=== PATIENT | female | born 1985 | race Caucasian/White ===

== ENCOUNTER 2022-05-13 14:28 | Outpatient (CLI) | payer BC, SELFPAY | END 2022-05-13 14:29 | disposition home or self-care (01) | LOC: US 14:29 | PROVIDERS: Visit Provider Pediatrics Neonatal-Perinatal Medicine | DX: O09.522 Supervision of elderly multigravida, second trimester (principal); Z3A.20 20 weeks gestation of pregnancy | CPT/HCPCS: 76811 ==

== ENCOUNTER 2022-05-28 10:36 | Outpatient (CLI) | payer BC, SELFPAY ==
[2022-05-28 13:41] LABS: Glucose Fasting Check 89 mg/dl (60-115)
[2022-05-28 17:27] LABS: Glucose 1 Hour Gest 123 mg/dl (70-180)
[2022-05-28 17:48] LABS: Glucose GTT-Gestational 3 Hr 124 mg/dl (70-140)
== END 2022-05-28 10:37 | disposition home or self-care (01) ==
LOC: NFLDREF 13:20
PROVIDERS: Visit Provider Obstetrics & Gynecology
DX: Z34.90 Encounter for supervision of normal pregnancy, unspecified, unspecified trimester (principal)
CPT/HCPCS: 82951; 82952

== ENCOUNTER 2022-06-10 10:48 | Outpatient (CLI) | payer BC, SELFPAY ==
--- NOTE | 2022-06-10 11:00 | CRLHL7_ITS ---
For Patients: As a result of the Cures Act, medical imaging exams and procedure reports are released immediately into your electronic medical record. You may view this report before your referring provider. If you have questions, please contact your health care provider. INDICATION: Third trimester scan, evaluate growth. COMPARISON: 02/18/2022, 05/13/2022 TECHNIQUE: Real time naqvi scale imaging of the fetus was performed. FINDINGS: Sonographic imaging demonstrates a single living intrauterine gestation. Fetus demonstrates a regular cardiac rate of 152 beats per minute. Fetus has a breech position. The placenta lies fundal posterior. Amniotic fluid volume appears normal and there is a single deepest vertical pocket: 3.2 cm. The estimated weight is 626gm which lies at the 12th %. On the prior OB ultrasound exam dated 05/13/2022 the estimated weight was at the 10th%. BPD 5th percentile. HC 5th percentile. AC 21st percentile. FL 15th percentile. The HC/AC ratio measures 1.12 range (1.05-1.21). IMPRESSION: Sonographic gestational age 23 weeks 4 days and sonographic due date 10/03/2022. Sonographic age is 1 week behind the clinical age. Estimated weight 12th percentile. Abdominal circumference 21st percentile. BPD and HC 5th percentile. Dictated by Jhony John MD @ 06/10/2022 11:40:52 AM (Electronically Signed)
== END 2022-06-10 10:49 | disposition home or self-care (01) ==
PROVIDERS: Visit Provider Obstetrics & Gynecology
DX: Z34.92 Encounter for supervision of normal pregnancy, unspecified, second trimester (principal); Z3A.23 23 weeks gestation of pregnancy
CPT/HCPCS: 76816

== ENCOUNTER 2022-07-09 12:27 | Outpatient (CLI) | payer BC, SELFPAY ==
[2022-07-09 13:35] LABS: Glucose Fasting Check 92 mg/dl (60-115)
[2022-07-09 17:33] LABS: Glucose GTT-Gestational 3 Hr 133 mg/dl (70-140)
[2022-07-09 17:33] LABS: Glucose 1 Hour Gest 168 mg/dl (70-180)
[2022-07-11 02:02] LABS: Rapid Plasma Reagin (RPR) Non Reactive (Non Reactive)
== END 2022-07-09 12:28 | disposition home or self-care (01) ==
PROVIDERS: Obstetrics & Gynecology; Visit Provider Registered Nurse
DX: O10.913 Unspecified pre-existing hypertension complicating pregnancy, third trimester (principal); Z3A.28 28 weeks gestation of pregnancy
CPT/HCPCS: 82951; 82952; 84443; 86592

== ENCOUNTER 2022-07-23 12:50 | Outpatient (CLI) | payer BC, SELFPAY ==
--- NOTE | 2022-07-23 13:00 | CRLHL7_ITS ---
For Patients: As a result of the Century Cures Act, medical imaging exams and procedure reports are released immediately into your electronic medical record. You may view this report before your referring provider. If you have questions, please contact your health care provider. INDICATION: Third trimester scan, evaluate growth. SGA COMPARISON: 06.10.22 TECHNIQUE: Real time naqvi scale imaging of the fetus was performed. FINDINGS: Sonographic imaging demonstrates a single living intrauterine gestation. Fetus demonstrates a regular cardiac rate of 169 beats per minute. Fetus has a vertex position. The placenta lies posteriorly. Amniotic fluid volume appears normal and there is a single deepest vertical pocket: 4.1 cm. The estimated weight is 1453gm which lies at the 13th %. On the prior OB ultrasound exam dated 06/10/2022 the estimated weight was at the 12th%. The BPD and HC less than 3rd percentile. AC 28th percentile. FL 13th percentile. The HC/AC ratio measures 1.04 range (0.98-1.20). IMPRESSION: Sonographic gestational age 29 weeks 3 days and sonographic due date 10/05/2022. Sonographic age is 9 days behind the clinical age. Estimated weight 13th percentile. Abdominal circumference 28th percentile. BPD and HC both less than 3rd percentile. Dictated by Jhony John MD @ 07/23/2022 3:12:38 PM (Electronically Signed)
== END 2022-07-23 12:51 | disposition home or self-care (01) ==
LOC: US 12:50
PROVIDERS: Visit Provider Registered Nurse
DX: Z03.74 Encounter for suspected problem with fetal growth ruled out (principal); Z3A.29 29 weeks gestation of pregnancy
CPT/HCPCS: 76816

== ENCOUNTER 2022-08-06 13:51 | Outpatient (CLI) | payer BC, SELFPAY ==
--- NOTE | 2022-08-06 14:00 | CRLHL7_ITS ---
For Patients: As a result of the Century Cures Act, medical imaging exams and procedure reports are released immediately into your electronic medical record. You may view this report before your referring provider. If you have questions, please contact your health care provider. INDICATION: female. Gestational diabetes mellitus. Chronic hypertension. Evaluate well-being. TECHNIQUE: Transabdominal obstetrical ultrasound. COMPARISON: July 23, 2022. FINDINGS: Single living intrauterine in vertex presentation. Posterior placenta. heart rate 154 beats per minute. Normal amniotic fluid volume. Single deepest pocket measurement 3.3 cm. Biophysical profile score 8/8 with 2 points given each for breathing, movement, tone, and amniotic fluid. Biparietal diameter 7.8 cm, 31 weeks 3 days, 10th percentile. Head circumference 29.2 cm, 32 weeks 1 day, 7th percentile. Abdominal circumference 28.4 cm, 32 weeks 3 days, 40th percentile. Femur length 6.2 cm, 32 weeks 2 days, 25th percentile. Composite calculated ultrasound age 32 weeks 1 day with a sonographic due date of September 30, 2022. Appropriate growth and maturation in the interval. Estimated weight 1929 g which lies at the 26 percentile, previously the 13th percentile. The head to abdominal circumference ratio is 1.0 (0.96-1.14). Femur length to abdominal circumference ratio 21.93 (20.0-24.0). IMPRESSION: Single living intrauterine in vertex presentation. Composite calculated ultrasound age 32 weeks 1 day with a sonographic due date of September 30, 2022. Biophysical profile score 8/8. Dictated by Bala Love MD @ 08/07/2022 10:00:18 AM (Electronically Signed)
== END 2022-08-06 13:52 | disposition home or self-care (01) ==
LOC: US 13:51
PROVIDERS: PCP Obstetrics & Gynecology; Visit Provider Obstetrics & Gynecology
DX: O24.419 Gestational diabetes mellitus in pregnancy, unspecified control (principal); O10.913 Unspecified pre-existing hypertension complicating pregnancy, third trimester; Z3A.32 32 weeks gestation of pregnancy
CPT/HCPCS: 76816; 76819

== ENCOUNTER 2022-08-14 13:54 | Outpatient (CLI) | payer BC, SELFPAY ==
--- NOTE | 2022-08-14 14:00 | CRLHL7_ITS ---
For Patients: As a result of the Century Cures Act, medical imaging exams and procedure reports are released immediately into your electronic medical record. You may view this report before your referring provider. If you have questions, please contact your health care provider. INDICATION: Gestational diabetes COMPARISON: none TECHNIQUE: Real time naqvi scale imaging of the fetus was performed. Without non-stress testing. FINDINGS: Sonographic imaging demonstrates a single living intrauterine gestation. Fetus demonstrates a regular cardiac rate of 147 beats per minute. Fetus has a vertex position. The amniotic fluid volume appears normal and there is a single deepest pocket measurement of 2.8 cm. The fetus was active and demonstrated normal breathing movements. There was normal flexion and extension of the trunk and extremities. IMPRESSION: Normal biophysical profile score of 8 out of 8. Dictated by Jhony John MD @ 08/14/2022 2:37:52 PM (Electronically Signed)
== END 2022-08-14 13:55 | disposition home or self-care (01) ==
LOC: US 13:55
PROVIDERS: PCP Obstetrics & Gynecology; Visit Provider Obstetrics & Gynecology
DX: O24.419 Gestational diabetes mellitus in pregnancy, unspecified control (principal)
CPT/HCPCS: 76819

== ENCOUNTER 2022-08-21 13:52 | Outpatient (CLI) | payer BC, SELFPAY ==
--- NOTE | 2022-08-21 14:00 | CRLHL7_ITS ---
For Patients: As a result of the Century Cures Act, medical imaging exams and procedure reports are released immediately into your electronic medical record. You may view this report before your referring provider. If you have questions, please contact your health care provider. INDICATION: Gestational diabetes COMPARISON: 08/14/2022 TECHNIQUE: Real time naqvi scale imaging of the fetus was performed. Without non-stress testing. FINDINGS: Sonographic imaging demonstrates a single living intrauterine gestation. Fetus demonstrates a regular cardiac rate of 141 beats per minute. Fetus has a vertex position. The amniotic fluid volume appears normal and there is a single deepest pocket measurement of 4.5 cm. The fetus was active and demonstrated normal breathing movements. There was normal flexion and extension of the trunk and extremities. IMPRESSION: Normal biophysical profile score of 8 out of 8. Dictated by Jhony John MD @ 08/21/2022 3:44:57 PM (Electronically Signed)
== END 2022-08-21 13:53 | disposition home or self-care (01) ==
LOC: US 13:53
PROVIDERS: PCP Obstetrics & Gynecology; Visit Provider Obstetrics & Gynecology
DX: O24.419 Gestational diabetes mellitus in pregnancy, unspecified control (principal)
CPT/HCPCS: 76819

== ENCOUNTER 2022-08-28 13:43 | Outpatient (CLI) | payer BC, SELFPAY ==
--- NOTE | 2022-08-28 14:00 | CRLHL7_ITS ---
For Patients: As a result of the Cures Act, medical imaging exams and procedure reports are released immediately into your electronic medical record. You may view this report before your referring provider. If you have questions, please contact your health care provider. OBSTETRICAL ULTRASOUND, 08/28/2022 INDICATION: GDM, CHTN. INDY by LMP: 09/26/2022. GA: 35 w, 6 d. FINDINGS: Cervix: Not visualized. position: Vertex. Technique: Transabdominal. Placenta/cord: Posterior. Amniotic Fluid: 5.2 cm SDP (greater than/equal to: 2- less than 8 cm). Heart rate: 149 bpm. BIOPHYSICAL PROFILE 8 Total Score 2 Gross Body Movements 2 Tone 2 Respiratory Activity 2 Amniotic Fluid SDP IMPRESSION: Biophysical profile /. Verónica Encarnacion M.D. Diagnostic/Breast Radiologist [email or web address] Transcribed: 8:26 a.m. JR/Dictated by: Verónica Encarnacion MD @ 08/30/2022 8:13:00 PM (Electronically Signed)
== END 2022-08-28 13:44 | disposition home or self-care (01) ==
LOC: US 13:44
PROVIDERS: PCP Obstetrics & Gynecology; Visit Provider Obstetrics & Gynecology
DX: O24.419 Gestational diabetes mellitus in pregnancy, unspecified control (principal); O10.913 Unspecified pre-existing hypertension complicating pregnancy, third trimester; Z3A.35 35 weeks gestation of pregnancy
CPT/HCPCS: 76819; 87081; 87653

== ENCOUNTER 2022-09-02 13:52 | Outpatient (CLI) | payer BC, SELFPAY ==
--- NOTE | 2022-09-02 14:00 | CRLHL7_ITS ---
For Patients: As a result of the Century Cures Act, medical imaging exams and procedure reports are released immediately into your electronic medical record. You may view this report before your referring provider. If you have questions, please contact your health care provider. INDICATION: Third trimester scan, evaluate growth. Gestational diabetes, hypertension. COMPARISON: 08/28/2022 TECHNIQUE: Real time naqvi scale imaging of the fetus was performed. FINDINGS: Sonographic imaging demonstrates a single living intrauterine gestation. Fetus demonstrates a regular cardiac rate of 137 beats per minute. Fetus has a vertex position. The placenta lies posterior. Amniotic fluid volume appears normal and there is a single deepest vertical pocket: 3.5 cm. The estimated weight is 2546gm which lies at the 15th %. On the prior OB ultrasound exam dated 08/06/2022 the estimated weight was at the 26th%. BPD 7th percentile. HC 10th percentile. AC 24th percentile. FL 5th percentile. The HC/AC ratio measures 1.02 range (0.93-1.11). Normal gross body movements, tone and respiratory activity. IMPRESSION: Normal biophysical profile 05/04. Sonographic gestational age 34 weeks 6 days and sonographic due date 10/08/2022. Sonographic age is 2 weeks behind the clinical age. Estimated weight 15th percentile. Abdominal circumference 24th percentile. Dictated by Jhony John MD @ 09/04/2022 10:30:44 AM (Electronically Signed)
== END 2022-09-02 13:53 | disposition home or self-care (01) ==
LOC: US 13:52
PROVIDERS: PCP Obstetrics & Gynecology; Visit Provider Obstetrics & Gynecology
DX: O24.419 Gestational diabetes mellitus in pregnancy, unspecified control (principal); Z3A.36 36 weeks gestation of pregnancy
CPT/HCPCS: 76816; 76819

== ENCOUNTER 2022-09-09 14:00 | Outpatient (RCR) | payer BC, SELFPAY | END 2022-09-09 14:29 | disposition home or self-care (01) | PROVIDERS: PCP Obstetrics & Gynecology; Visit Provider Obstetrics & Gynecology | DX: O26.892 Other specified pregnancy related conditions, second trimester (principal); Z51.89 Encounter for other specified aftercare | CPT/HCPCS: 97110; 97112; 97140; 97162; 97530; 97535 ==

== ENCOUNTER 2022-09-11 13:50 | Outpatient (CLI) | payer BC, SELFPAY ==
--- NOTE | 2022-09-11 14:00 | CRLHL7_ITS ---
For Patients: As a result of the Century Cures Act, medical imaging exams and procedure reports are released immediately into your electronic medical record. You may view this report before your referring provider. If you have questions, please contact your health care provider. INDICATION: Gestational diabetes, hypertension. COMPARISON: OB ultrasound 09/02/2022. TECHNIQUE: Real time naqvi scale imaging of the fetus was performed without non-stress testing. FINDINGS: Sonographic imaging demonstrates a single living intrauterine gestation. The fetus demonstrates a regular cardiac rate of 150 beats per minute. The fetus has a cephalic orientation. The placenta lies posteriorly. Amniotic fluid volume appears normal with single deepest pocket measuring 4.1 cm (2/2). The fetus was active (2/2). There was normal flexion and extension of the trunk and extremities (2/2). The fetus demonstrated normal breathing movements (2/2). IMPRESSION: Normal biophysical profile score 8 out of 8. Dictated by Kenia Fernández MD @ 09/11/2022 11:35:35 PM (Electronically Signed)
== END 2022-09-11 13:51 | disposition home or self-care (01) ==
LOC: US 13:51
PROVIDERS: PCP Obstetrics & Gynecology; Visit Provider Obstetrics & Gynecology
DX: O24.419 Gestational diabetes mellitus in pregnancy, unspecified control (principal); O16.9 Unspecified maternal hypertension, unspecified trimester; Z3A.00 Weeks of gestation of pregnancy not specified
CPT/HCPCS: 76819

== ENCOUNTER 2022-09-17 07:54 | Inpatient (IN) | payer BC, SELFPAY ==
[2022-09-17] VITALS (34 sets, daily range): BP systolic 111–187; BP diastolic 55–85; PULSE 76–95; RESP 16–18; TEMP 36.6–37.1; O2SAT 90–100; BMI 41.3
[2022-09-17 09:03] LABS: SARS PCR* Negative SARS-CoV-2 (Negative)
--- NOTE | 2022-09-17 09:22 | P.LDBA_ITS ---
Subjective History of Present Illness Date Seen: 09/17/22 Narrative: Patient is being admitted to Labor and Delivery for IOL. She is a 37 year old at weeks gestation. Her full history and physical was dictated by Dr. CAMPA on 09/02/22. Please see this for details. Patient today states to be doing well, no significant changes since her last appointment. blood type:?A positive G2, P 0 010 :? TJ. Baby: Girl Conceived on letrozole. 1. AMA: --LVL 2 ultrasound ordered on 03/19/22: normal anatomy, EFW 10%.? --03/19/22, Genetic screening: MaterniT-21:? Negative 2. Chronic hypertension, managed with exercise. * Abnl baseline labs:*AST 57, 24hr urine protein: 400mg.? AST Recheck 03/19/2022:? 22.ALT 27, Plt 327, WBC 12.1, BUN 11, Creat 0.7, Uric acid 5. Recommended daily baby aspirin due to AMA, obesity, history of HTN, primigravida * IOL 38-39 6/7 weeks 3. Gestational Diabetes A2 -Started insulin on 08/05/22: NPH 22 units at night -Twice weekly testing -Growth US every 4 weeks * 08/06/22: EFW 26%.? BPD 10%, HC 7%, AC 40%, FL 25%.?-IOL 39 - 39 6/7 weeks if good control continues.? 4. Body mass index:? 39.1 * A1C: 5.3% * Early Glucola: 151 * 3 hr GTT at 20 weeks:? entirely normal * 28 week *3*hr GTT: abnormal.?GDM * testing as in #3 5. Hypothyroidism, managed on 25 mcg levothyroxine. Check TSH w/ reflex FT4 Q trimester ?--First trimester 02/20/22: TSH 1.06 ? ?--Third trimester:07/09/22:2.270, continue on same dose 6.? Borderline IUGR at 20 week scan.? INDY by ultrasound on 05/13/2022 is 10/04/2022 EFW 10% on level 2 ultrasound.? INDY by LMP 09/26/2022.??Patient suggests different ovulation date; review with patient at next visit.?(see blow)? INDY by 1st ultrasound 10/01/2022, on which the CRL was consistent with 7 weeks, [address] Box does not recommend changing INDY, but recommends follow-up scan for growth at 30+ weeks gestation Favor repeat US for EFW at 24 weeks, prior to next visit.? Twenty-four weeks: EFW of 12%.? Abdomen 21%.? BPD 5%, HC 5%.? FL 15%. Repeat growth at 30 weeks:EFW:13%, Vertex, BPD: <3%, HC: <3%, AC: 28%, FL: 13%. SDP: 4.1cm. Referral to perinatology for second opinion: MFM: HC:9%, normal anatomy, no need for further evaluation 7.??GBS positive.? Ampicillin in labor. OB - H&P: Exam Physical Exam: Vital signs: Pulse BP 86 135/73 09/17/22 08:21 09/17/22 08:21 Narrative: NST: 130 bpm/ positive accelerations/negative decelerations/moderate variability/irregular asymptomatic UCs OB - Problem Based A/P Additional Plan (1) : Status: Acute Plan IOL: 1. GDM insulin dependent: Patient utilized her usual NPH last night at 10pm. Blood sugar upon arrival 87 normal. She will maintain a light diet today. Will continue to monitor BS as per protocol and treat with IV insulin if needed. 2. CHTN: Baseline labs ordered, will continue to monitor V/S and symptoms of severe HTN/PreE closely. 3. GBS positive: Start IV ampicillin ELANA 4. IOL: Start IV oxytocin and will move towards AROM after at least 4 hours of antibiotic therapy. 5. Pain management as needed, as per patient preference 6. Continuos monitoring
[2022-09-17] MEDS: AMPICILLIN 2 GM in 0.9 % SODIUM CHLORIDE Mini-bag 100 ML IVPB (10:32)
[2022-09-17] MEDS: LACTATED RINGERS 1000 ML 1,000 ML 125 ML IV ×2 (10:32→18:51)
[2022-09-17 10:55] LABS: Basophils Absolute Auto 0.03 K/uL (0.00-0.30); Basophils Percent Auto 0.3 % (0.0-3.0); Hematocrit 35.8 % (33.0-51.0); Hemoglobin* 12.4 gm/dL (12.0-16.0); Lymphocytes Percent Auto 22.7 % (20-44); Mean Corpuscular HGB Conc 35 gm/dL (32-36); Mean Corpuscular Hemoglobin 33 pg (26-34); Mean Corpuscular Volume 94 fL (80-100); Neutrophils Absolute Auto 6.87 K/uL (1.7-7.0); Platelet Count* 264 K/uL (140-440); RDW Coefficient of Variation % 13.4 % (11.5-15.5); Red Blood Count 3.82 m/uL (4.00-5.20); White Blood Count* 10.11 K/uL (4.50-11.00)
[2022-09-17 11:12] LABS: Slide Review Reflex No
[2022-09-17 12:04] LABS: Alanine Aminotransferase* 13 U/L (4-35); Aspartate Amino Transferase* 24 U/L (12-35); Blood Urea Nitrogen* 15 mg/dL (5-24); Creatinine* 0.6 mg/dL (0.5-1.5); Est. Creatinine Clearance* 122.51; Estimated Glomerular Filt Rate 120 ml/min
[2022-09-17] MEDS: AMPICILLIN 1 GM in 0.9 % SODIUM CHLORIDE Mini-bag 100 ML IVPB ×2 (14:30→18:59)
[2022-09-17] MEDS: OXYTOCIN 30 unit/500 ML in NS 30 UNIT/500 ML BAG IVPB (15:40)
[2022-09-17] MEDS: fentaNYL 250 MCG/5 ML inj 100 MCG EPIDURAL (18:40)
[2022-09-17] MEDS: LIDOCAINE 2% (PF) 5 ML VIAL EPIDURAL (18:44)
[2022-09-17] MEDS: ROPIVACAINE 0.2% 100 ml 100 ML 12 MG EPIDURAL (18:44)
--- NOTE | 2022-09-17 18:59 | PM.OBPNL ---
Subjective Date Seen: 09/17/22 Narrative: *Late note entry. 37-year-old admitted for induction of labor in the setting of term , gestational diabetes insulin controlled, chronic hypertension, hypothyroidism. We were unable to start induction of labor until about 3:30 p.m. due to staffing issues. Patient was kept most of the time on it the in monitor and NST has remained category 1. Blood sugars have remained well controlled. Since patient is GBS status, ampicillin was started. Cervix was checked at around 3:30 p.m. and found 5 cm dilated recommendation was given for a ROM. Patient tolerated procedure well. IV oxytocin also started at this time. Cervix was re checked at around 5:30 p.m. and she has progressed to 7cm/90% effaced/-1 station. NST has remained category 1. Tracing has continue to show right uterine contractions and patient has been rating them as more intense and painful. Patient did request epidural and this was placed at around 6:30-6:45 p.m. Objective Exam: Cervix: 7cm/90/vx/-1 NST: 130bpm/positive accelerations/negative decelerations/ moderate variability/ regular uterine contractions Vital Signs: Last Vital Signs Temp 98 F 09/17/22 13:39 Pulse 85 09/17/22 18:57 Resp 16 09/17/22 13:39 BP 146/81 H 09/17/22 18:57 Pulse Ox 99 09/17/22 18:54 Pelvic Exam Dilation (cm): 7 Effacement (%): 90 Station: -1 Contractions Monitor mode: External Contraction pattern: Regular Contraction intensity: Strong/Firm Pitocin Rate (mU/min): 8 Assessment Assessment: active labor Station: -1 Amniotic Membrane Status: AROM Status: Category l Heart Rate Baseline: 130 Prison Variability: Moderate (6-25) Monitor Accelerations: Present Monitor Decelerations: None Tracing Comments: Category 1 Labor Progress: Normal Maternal Status: Good Plan Plan: Continue current management
--- NOTE | 2022-09-17 19:00 | P.ANBPRC_ITS ---
[facility] Medical History (Updated 08/15/22 @ 14:58 by Anabel Lau MD) History of viral meningitis Surgical History (Updated 04/13/22 @ 10:28 by Georgie Kaminski) History of adenoidectomy History of myringotomy History of strabismus surgery Social History Smoking Status: Never smoker Meds Home Medications and Allergies Home Medications Medication Instructions Recorded Confirmed Type aspirin 81 mg tablet,delayed 81 mg PO QDAY 04/16/22 09/17/22 History release (Adult Low Dose Aspirin) prenat.vits,jim,pku-uyam-vtnbe 1 tab PO QDAY 04/16/22 09/17/22 History insulin NPH human semi-syn 100 unit subcut 08/06/22 09/15/22 History unit/mL subcutaneous suspension Allergies Allergy/AdvReac Type Severity Reaction Status Date / Time gentamicin AdvReac Intermediate Verified 09/17/22 08:19 minocycline AdvReac Intermediate Verified 09/15/22 14:53 spironolactone AdvReac Intermediate Verified 09/15/22 14:53 Sulfa (Sulfonamide AdvReac Intermediate Verified 09/17/22 08:19 Antibiotics) Results Labs Labs: Laboratory Results - last 24 hr 09/17/22 09/17/22 09/17/22 08:10 09:20 10:45 WBC 10.11 RBC 3.82 L Hgb 12.4 Hct 35.8 MCV 94 MCH 33 MCHC 35 RDW Coeff of Zeus 13.4 Plt Count 264 Neut % (Auto) 68.0 Lymph % (Auto) 22.7 [place] % (Auto) 6.0 Eos % (Auto) 1.0 Baso % (Auto) 0.3 Neut # (Auto) 6.87 Lymph # (Auto) 2.30 [place] # (Auto) 0.60 Eos # (Auto) 0.10 Baso # (Auto) 0.03 BUN 15 Creatinine 0.6 Estimated Creat Clear 122.51 Estimated GFR 120 AST 24 ALT 13 SARS-CoV-2 (PCR) Negative SARS-CoV-2 Blood Type Antibody Screen 09/17/22 10:45 WBC RBC Hgb Hct MCV MCH MCHC RDW Coeff of Zeus Plt Count Neut % (Auto) Lymph % (Auto) [place] % (Auto) Eos % (Auto) Baso % (Auto) Neut # (Auto) Lymph # (Auto) [place] # (Auto) Eos # (Auto) Baso # (Auto) BUN Creatinine Estimated Creat Clear Estimated GFR AST ALT SARS-CoV-2 (PCR) Blood Type A Positive Antibody Screen NEGATIVE Vital Signs Vital Signs: Last Vital Signs Temp 98 F 09/17/22 13:39 Pulse 85 09/17/22 18:57 Resp 16 09/17/22 13:39 BP 146/81 H 09/17/22 18:57 Pulse Ox 98 09/17/22 18:59 Weight: 116.12 kg Height: 167.64 cm Anesthesia Procedures Epidural Insertion Patient Location: OB Start Time: 18:00 Stop Time: 19:00 Start Date: 09/17/22 Stop Date: 09/17/22 Reason for Block: primary anesthetic Patient Position: sitting Performed By: Lazaro Hankins Preanesthetic Checklist: IV checked, risks and benefits discussed, surgical consent, monitors and equipment checked, pre-op evaluation, timeout performed and anesthesia consent Prep: chlorhexidine gluconate Monitoring: blood pressure monitoring, surveillance monitor, continuous pulse oximetry and heart rate Approach: midline Vertebral Space: lumbar (1-5) Needle Type: Tuohy needle Injection Technique: continuous catheter Needle gauge: 17 Needle Length (cm): 10 cm Needle Insertion Depth (cm): 6 Catheter Gauge: 19 Catheter Type: multi-orifice Catheter at skin depth (cm): 12 Test Dose Result: negative and lidocaine 1.5% with epinephrine 1 to 200,000 Events: other
--- NOTE | 2022-09-17 21:08 | PM.OBPRCVD ---
Procedure Delivery date: 09/17/22 Procedure Done: Global Events: GDMA2, Chronic Hypertension, Labor Induction and Other (hypothyroidism) Intrapartal Events: Labor Induction Induction method: AROM Delivery augmentation: rupture of membranes and pitocin Delivery monitor: external FHT Route of delivery: Episiotomy description: None Laceration description: Perineal - 1st Degree Delivery repair: Vicryl Estimated blood loss (mL): 100 Anesthesia type: Epidural Disposition: floor Complications: None Narrative: The patient is a 37 year-old G 2 P 1011 admitted on 09/17/2022 at 38 Weeks, 5 Days gestation for induction of labor.? Cervical exam on admission was 4 cm/80 % effaced/-2 station with membranes intact in vertex presentation.? Contractions were every 5-7 minutes.? heart rate demonstrated baseline 130 bpm with moderate variability, positive accelerations, negative decelerations; a category 1 tracing.? A ROM occurred at 1528 with clear fluid. ? Labor Analgesia:? Epidural ? Pitocin:? Yes ? Labor onset:? 1523 ? Complete:? 193 ? Pushing:? 1942 ? heart tones during second stage were category 1, right before the last push there was a deceleration down to 70s heartbeat, patient delivered with the next push. ? At 2041 a viable female delivered in vertex JUDSON presentation over intact perineum via spontaneous vaginal delivery.? Infant was placed on maternal abdomen.? Cord was clamped and cut after a 30-60 second delay.? Nose and mouth were bulb suctioned.? weight pending.? 8 at 1 minute and 9 at 5 minutes.? Shoulder dystocia: No.? Nuchal cord: Yes x1, easily reduced after delivery of head. ? Placenta delivered spontaneously and complete at 2048 with a 3 vessel cord. ? Mother and infant were stable after delivery. ? Lacerations:? 1st degree perineal, repaired with micro 3-0 and Vicryl 4-0. ? Blood loss: 100 mL. Blood loss measurement type: QBL ? Sponge and needles counts are correct. Infant Gender: Female presentation: vertex Placental Delivery Description: Spontaneous Cord Description: 3 Vessels and Nuchal Cord cord description comment: Marginal insertion of the umbilical cord
[2022-09-18 03:49] VITALS: BP 96/62; PULSE 102; RESP 16; TEMP 37; O2SAT 98
[2022-09-18 07:08] LABS: Hemoglobin* 14.3 gm/dL (12.0-16.0)
--- NOTE | 2022-09-18 07:37 | P.DS_ITS ---
DS: Providers Provider Time Seen by Provider: 07:38 Date Seen: 09/18/22 Date of admission: 09/17/22 07:54 Primary care physician: Odette Lomax MD Admitting Clinician: Ivelisse Carlos MD Attending Physician on discharge: Ivelisse Carlos MD DS: Diagnosis Discharge Diagnosis (1) NVD (normal vaginal delivery): Status: Acute (2) Lactating mother: Status: Acute Exam Narrative: Exam Narrative: VSS, afebrile GENERAL APPEARANCE: ?normal affect, alert, no distress MOOD: ?appropriate HEENT: normocephalic, neck supple, full ROM CHEST: ?Symmetrical chest wall movement. ?Normal respiratory effort. ?Clear to auscultation HEART: ?regular rate and rhythm ABDOMEN: ?soft, non-tender. Uterine fundus is firm, at Umbilicus, Midline and is appropriate for the stage of recovery. ?Bowel sounds present. PERINEUM: ?moderate edema of the perineum, there is a1st] degree laceration that is healing well. EXTREMITIES: ?normal and no edema Const: Vital Signs, click to edit/add: Vital Signs - 24 hr 09/17/22 08:21 09/17/22 13:38 09/17/22 13:39 Temperature 98 F Pulse Rate 86 86 Pulse Rate [Pulse Oximeter] Respiratory Rate 16 Blood Pressure 135/73 113/62 Blood Pressure [Le ft Arm] Pulse Oximetry Oxygen Delivery Me thod 09/17/22 18:28 09/17/22 18:29 09/17/22 18:34 Temperature Pulse Rate 95 Pulse Rate [Pulse Oximeter] Respiratory Rate Blood Pressure 168/85 H Blood Pressure [Le ft Arm] Pulse Oximetry 90 98 100 Oxygen Delivery Me thod 09/17/22 08:22 09/17/22 18:39 09/17/22 18:44 Temperature 98.7 F Pulse Rate Pulse Rate [Pulse Oximeter] Respiratory Rate 18 Blood Pressure Blood Pressure [Le ft Arm] Pulse Oximetry 98 99 Oxygen Delivery Me thod 09/17/22 18:49 09/17/22 18:54 09/17/22 18:57 Temperature Pulse Rate 85 Pulse Rate [Pulse Oximeter] Respiratory Rate Blood Pressure 146/81 H Blood Pressure [Le ft Arm] Pulse Oximetry 100 99 Oxygen Delivery Me od 09/17/22 18:59 09/17/22 19:03 09/17/22 19:04 Temperature Pulse Rate 83 Pulse Rate [Pulse Oximeter] Respiratory Rate Blood Pressure 136/67 Blood Pressure [Le ft Arm] Pulse Oximetry 98 99 Oxygen Delivery Me thod 09/17/22 19:09 09/17/22 19:12 09/17/22 19:14 Temperature Pulse Rate 83 83 Pulse Rate [Pulse Oximeter] Respiratory Rate Blood Pressure 130/65 122/64 Blood Pressure [Le ft Arm] Pulse Oximetry 97 97 Oxygen Delivery Me thod 09/17/22 19:18 09/17/22 19:19 09/17/22 19:22 Temperature Pulse Rate 83 79 Pulse Rate [Pulse Oximeter] Respiratory Rate Blood Pressure 123/58 L 118/57 L Blood Pressure [Le ft Arm] Pulse Oximetry 98 Oxygen Delivery Me thod 09/17/22 19:24 09/17/22 19:29 09/17/22 19:39 Temperature Pulse Rate 88 Pulse Rate [Pulse Oximeter] Respiratory Rate Blood Pressure 137/83 Blood Pressure [Le ft Arm] Pulse Oximetry 97 98 Oxygen Delivery Me thod 09/17/22 19:54 09/17/22 20:39 09/17/22 21:05 Temperature Pulse Rate 90 86 81 Pulse Rate [Pulse Oximeter] Respiratory Rate Blood Pressure 132/65 134/65 123/58 L Blood Pressure [Le ft Arm] Pulse Oximetry Oxygen Delivery Me thod 09/17/22 21:20 09/17/22 21:36 09/17/22 21:51 Temperature Pulse Rate 82 92 81 Pulse Rate [Pulse Oximeter] Respiratory Rate Blood Pressure 122/60 187/69 H 126/56 L Blood Pressure [Le ft Arm] Pulse Oximetry Oxygen Delivery Me thod 09/17/22 22:05 09/17/22 22:21 09/17/22 22:35 Temperature Pulse Rate 76 80 84 Pulse Rate [Pulse Oximeter] Respiratory Rate Blood Pressure 114/55 L 121/58 L 115/59 L Blood Pressure [Le ft Arm] Pulse Oximetry Oxygen Delivery Me thod 09/17/22 22:50 09/18/22 03:49 Temperature 98.6 F Pulse Rate 93 Pulse Rate [Pulse Oximeter] 102 H Respiratory Rate 16 Blood Pressure 111/58 L Blood Pressure [Le ft Arm] 96/62 Pulse Oximetry 98 Oxygen Delivery Me thod Room Air Documenting provider has reviewed patient's vital signs: yes OB - DS: Summary Hospital Course Hospital Course: Taya is a 37 y.o. who was admitted to [facility] for IOL. ?She had an uncomplicated NVD The patient feels well. ?The pain is well controlled with current medications. ?She has no new complaints. ?She is breast feeding and reports things are going well.? the patient has done well.? Vitals have been stable.? She has remained afebrile.? Has a good appetite, is tolerating a general diet. ?She is voiding without difficulty.? She is passing gas and has not had a bowel movement.? She is ambulating and denies any dizziness.? Has Small amount of rubra lochia. ?She is undecided about prevention. Problems: None plan: Discharge home with baby. Follow up in 2 weeks and 6 weeks. , may follow up with if needed Peripartum Data Infant delivery method: Vaginal Laceration description: Perineal - 1st Degree complications: none Infant Gender: Female Status at Discharge Functional status at discharge: independent ambulation Overall status at discharge: patient is progressing back to baseline Time Spent with Patient Time attestation: Total time spent providing and/or coordinating discharge services: Time spent: Less than 30 minutes Discharge Plan Discharge Disposition: Home, Self-Care Date of Admission: 09/17/22 07:54 Attending Provider on Discharge: Tiara Reese Primary Care Provider: Odette Lomax Condition: Stable Anticipated Discharge Date/Time: 09/18/22 21:00 Discharge Medications: New ibuprofen 600 mg Tablet 600 mg PO Q6H PRNQty: 60 0RF docusate sodium 100 mg Capsule 100 mg PO BID PRNQty: 100 0RF Rx Instructions: Take 1 cap 1-2 times a day as needed for constipation Continued prenat.vits,jim,[id number] Tablet 1 tab PO QDAY albuterol sulfate 90 mcg/actuation HFA aerosol inhaler 2 puff inhalation Q4H PRN (Reason: bronchospasm) Qty: 8.5 3RF Label Comments: used as needed, hasn't used in a while. Usually for intense cardio levothyroxine 25 mcg tablet 25 mcg PO DAILY Qty: 90 0RF Discontinued aspirin [Adult Low Dose Aspirin] 81 mg tablet,delayed release (/EC) 81 mg PO QDAY (DME) lancets Misc See Rx Instructions .MEDSUPPLY Qty: 100 3RF Rx Instructions: Test blood sugar 4 times daily. (DME) Test Strips Misc See Rx Instructions .MEDSUPPLY Qty: 100 3RF Rx Instructions: Test blood sugar 4 times daily. (DME) Blood Glucose Meter Misc See Rx Instructions .MEDSUPPLY Qty: 1 0RF Rx Instructions: As directed insulin NPH human semi-syn 100 unit/mL suspension subcut Discharge Orders: Discharge Order (Routine); Ordered 09/18/22 Ordered By: Tiara Reese Patient Education: OB Over the Counter Medication Information, OB Vaginal/Breast Feeding Additional Instructions: Follow up in 2 weeks and 6 weeks Activity Level: Activity as Tolerated Discharge Diet: Regular Follow Up Appointments: Odette Lomax MD [Primary Care Provider] - Forms: [facility] Info Inst[facility]
[2022-09-18 07:59] VITALS: BP 121/78; PULSE 93; RESP 16; TEMP 36.7; O2SAT 96
[2022-09-18 12:19] VITALS: BP 115/74; PULSE 92; RESP 16; TEMP 36.7; O2SAT 96
[2022-09-18 16:01] VITALS: BP 137/82; PULSE 97; RESP 16; TEMP 36.6; O2SAT 95
[2022-09-18 21:37] VITALS: BP 120/81; PULSE 109; RESP 18; TEMP 36.6; O2SAT 96
[2022-09-19 00:36] VITALS: BP 139/83
[2022-09-19 04:57] VITALS: BP 108/77; PULSE 111; RESP 18; TEMP 36.7; O2SAT 96
[2022-09-19 08:50] VITALS: BP 123/81; PULSE 107; RESP 16; TEMP 36.6; O2SAT 96
--- NOTE | 2022-09-19 09:44 | P.DS_ITS ---
DS: Providers Provider Date Seen: 09/19/22 Date of admission: 09/17/22 07:54 Primary care physician: Odette Lomax MD Admitting Clinician: Ivelisse Carlos MD Attending Physician on discharge: Anabel Lau MD Date of Discharge: 09/19/22 DS: Diagnosis Discharge Diagnosis (1) NVD (normal vaginal delivery): Status: Acute (2) Gestational diabetes: Status: Acute Exam Narrative: Exam Narrative: General: Pleasant, no acute distress Heart: Regular rate and rhythm, no murmur or gallop Lungs: Clear to auscultation bilaterally Abdomen: Soft, nontender, fundus well below umbilicus Lower extremities: No edema Const: Vital Signs, click to edit/add: Vital Signs - 24 hr 09/18/22 12:19 09/18/22 16:01 09/18/22 21:37 Temperature 98.1 F 97.9 F 97.9 F Pulse Rate [Pulse Oximeter] 92 97 109 H Respiratory Rate 16 16 18 Blood Pressure [Le ft Arm] 115/74 137/82 120/81 Pulse Oximetry 96 95 96 Oxygen Delivery Me thod Room Air Room Air Room Air 09/19/22 00:36 09/19/22 04:57 09/19/22 08:50 Temperature 98.1 F 97.9 F Pulse Rate [Pulse Oximeter] 111 H 107 H Respiratory Rate 18 16 Blood Pressure [Le ft Arm] 139/83 108/77 123/81 Pulse Oximetry 96 96 Oxygen Delivery Me thod Room Air Room Air OB - DS: Summary Hospital Course Hospital Course: The patient is a 37 year old G 2 now P 1-0-1-1 woman admitted to the Center on 09/17/22 at 38 weeks, 6 days gestation for IOL for chronic HTN in . OB Problem List: Specific Issues/Plans blood type:?A positive G2, P 0 010 :? TJ. Baby: [] Conceived on letrozole. 1. AMA: --LVL 2 ultrasound ordered on 03/19/22: normal anatomy, EFW 10%.? --03/19/22, Genetic screening: [id number]-21:? Negative 2. Chronic hypertension, managed with exercise. * Abnl baseline labs:*AST 57, 24hr urine protein: 400mg.? AST Recheck 03/19/2022:? 22.ALT 27, Plt 327, WBC 12.1, BUN 11, Creat 0.7, Uric acid 5. Recommended daily baby aspirin due to AMA, obesity, history of HTN, primigravida * IOL 38-39 6/7 weeks 3. Gestational Diabetes A2 -Started insulin on 08/05/22: NPH 22 units at night -Twice weekly testing -Growth US every 4 weeks * 08/06/22: EFW 26%.? BPD 10%, HC 7%, AC 40%, FL 25%.?-IOL 39 - 39 6/7 weeks if good control continues.? 4. Body mass index:? 39.1 * A1C: 5.3% * Early Glucola: 151 * 3 hr GTT at 20 weeks:? entirely normal * 28 week *3*hr GTT: abnormal.?GDM * testing as in #3 5. Hypothyroidism, managed on 25 mcg levothyroxine. Check TSH w/ reflex FT4 Q trimester ?--First trimester 02/20/22: TSH 1.06 ? ?--Third trimester:07/09/22:2.270, continue on same dose 6.? Borderline IUGR at 20 week scan.? INDY by ultrasound on 05/13/2022 is 10/04/2022 EFW 10% on level 2 ultrasound.? INDY by LMP 09/26/2022.??Patient suggests different ovulation date; review with patient at next visit.?(see blow)? INDY by 1st ultrasound 10/01/2022, on which the CRL was consistent with 7 weeks, [address] Box does not recommend changing INDY, but recommends follow-up scan for g rojas at 30+ weeks gestation Favor repeat US for EFW at 24 weeks, prior to next visit.? Twenty-four weeks: EFW of 12%.? Abdomen 21%.? BPD 5%, HC 5%.? FL 15%. Repeat growth at 30 weeks:EFW:13%, Vertex, BPD: <3%, HC: <3%, AC: 28%, FL: 13%. SDP: 4.1cm. Referral to perinatology for second opinion: MFM: HC:9%, normal anatomy, no need for further evaluation 7.??GBS positive.? Ampicillin in labor. She had an uncomplicated spontaneous vaginal delivery on 09/17/2022. She delivered a viable female . the patient has done well. Today, on day 2, she has no complaints. She is breast feeding without difficulty. Her daughter will be needing an echocardiogram prior to discharge. After that, the plan to leave. She has no concerns with voiding. Bleeding is scant. Uterine cramping is not severe. She had a normal fasting blood sugar yesterday. All of her blood pressures have been within normal ranges. [place] Infant Gender: Female Time Spent with Patient Time attestation: Total time spent providing and/or coordinating discharge services: Discharge Plan Discharge Disposition: Home, Self-Care Date of Admission: 09/17/22 07:54 Attending Provider on Discharge: Anabel Lau Primary Care Provider: Odette Lomax Condition: Stable Anticipated Discharge Date/Time: 09/18/22 21:00 Discharge Medications: New ibuprofen 600 mg Tablet 600 mg PO Q6H PRNQty: 60 0RF docusate sodium 100 mg Capsule 100 mg PO BID PRNQty: 100 0RF Rx Instructions: Take 1 cap 1-2 times a day as needed for constipation acetaminophen 500 mg Tablet 1,000 mg PO Q6H PRNQty: 0 0RF Lanolin (HPA) 100 % Cream 1 applic topical Q1H PRNQty: 0 0RF magnesium hydroxide [Milk of Magnesia] 400 mg/5 mL Suspension 30 ml PO Q6H PRNQty: 0 0RF Continued prenat.vits,jim,[id number] Tablet 1 tab PO QDAY albuterol sulfate 90 mcg/actuation HFA aerosol inhaler 2 puff inhalation Q4H PRN (Reason: bronchospasm) Qty: 8.5 3RF Label Comments: used as needed, hasn't used in a while. Usually for intense cardio levothyroxine 25 mcg tablet 25 mcg PO DAILY Qty: 90 0RF Discontinued aspirin [Adult Low Dose Aspirin] 81 mg tablet,delayed release (DR/EC) 81 mg PO QDAY (DME) lancets Misc See Rx Instructions .MEDSUPPLY Qty: 100 3RF Rx Instructions: Test blood sugar 4 times daily. (DME) Test Strips Misc See Rx Instructions .MEDSUPPLY Qty: 100 3RF Rx Instructions: Test blood sugar 4 times daily. (DME) Blood Glucose Meter Misc See Rx Instructions .MEDSUPPLY Qty: 1 0RF Rx Instructions: As directed insulin NPH human semi-syn 100 unit/mL suspension subcut Discharge Orders: Discharge Order (Routine); Ordered 09/19/22 Ordered By: Anabel Lau Patient Education: OB Over the Counter Medication Information, OB Vaginal/Breast Feeding Additional Instructions: Follow up in 2 weeks and 6 weeks Activity Level: Activity as Tolerated Activity Detail: Nothing per vagina X 6 weeks. Discharge Diet: Regular Follow Up Appointments: Odette Lomax MD [Primary Care Provider] - Anabel Lau MD [Staff Physician] - [facility]: [facility] Info Instructions
== END 2022-09-19 14:00 | disposition home or self-care (01) | DRG 560 ==
PROVIDERS: Admitting Provider Obstetrics & Gynecology; PCP Obstetrics & Gynecology; Visit Provider Obstetrics & Gynecology
DX: O24.424 Gestational diabetes mellitus in childbirth, insulin controlled (principal); O99.824 Streptococcus B carrier state complicating childbirth; O10.92 Unspecified pre-existing hypertension complicating childbirth; O70.0 First degree perineal laceration during delivery; O99.284 Endocrine, nutritional and metabolic diseases complicating childbirth; E03.9 Hypothyroidism, unspecified; Z3A.38 38 weeks gestation of pregnancy; Z37.0 Single live birth
CPT/HCPCS: 01967; 36415; 82565; 84450; 84460; 84520; 85018; 85025; 86850; 86900; 86901; 87635; 88307; J0290; J2795; J3010; J7120

== ENCOUNTER 2022-11-03 09:54 | Outpatient (CLI) | payer BC, SELFPAY ==
[2022-11-03 10:27] LABS: Glucose Fasting Check 95 mg/dl (60-115)
[2022-11-03 15:03] LABS: Glucose Fasting 103 mg/dl (70-95)
[2022-11-03 15:05] LABS: Glucose 2 Hour 138 mg/dl (70-155)
[2022-11-03 20:16] LABS: TSH With Reflex to FT4* 0.638 uIU/mL (0.270-4.200)
== END 2022-11-03 09:55 | disposition home or self-care (01) ==
PROVIDERS: PCP Obstetrics & Gynecology; Visit Provider Registered Nurse
DX: Z39.2 Encounter for routine postpartum follow-up (principal); E03.9 Hypothyroidism, unspecified; E78.5 Hyperlipidemia, unspecified; Z86.32 Personal history of gestational diabetes
CPT/HCPCS: 82947; 82950; 84443

== ENCOUNTER 2022-12-16 07:30 | Outpatient (CLI) | payer BC, SELFPAY | END 2022-12-16 07:31 | disposition home or self-care (01) | LOC: NFLDREF 12-17 13:48 | PROVIDERS: PCP Obstetrics & Gynecology; Referring Provider Obstetrics & Gynecology; Visit Provider Registered Nurse | DX: E03.9 Hypothyroidism, unspecified (principal) | CPT/HCPCS: 84443 ==

== ENCOUNTER 2024-11-27 17:04 | Outpatient (CLI) | payer OTHER, SELFPAY | END 2024-11-27 17:05 | disposition home or self-care (01) | PROVIDERS: PCP Emergency Medicine; Visit Provider Physician Assistant Medical | DX: E78.5 Hyperlipidemia, unspecified (principal); E03.9 Hypothyroidism, unspecified | CPT/HCPCS: 80053; 80061; 84443 ==